=== PATIENT | male | born 1955 | race Caucasian/White ===

== ENCOUNTER 2019-07-10 21:11 | Emergency (ER) | payer BC ==
[~2019-07-10] VITALS: Ht 188 cm; Wt 111.4 kg
[2019-07-10 21:15] VITALS: TEMP 98.9
[2019-07-10] MEDS ORDERED: FLOMAX 0.40.4 MG/CAP PO (23:39)
[2019-07-10] MEDS ORDERED: PROSCAR 5MG5 MG PO (23:39)
[2019-07-10] MEDS ORDERED: LOTREL 2.5 MG-11 CAP PO (23:40)
[2019-07-11] MEDS ORDERED: NORCO 325 MG-51 TAB PO (00:03)
[2019-07-11] MEDS ORDERED: DIAMOX 250MG250 MG PO ×3 (00:03→00:21)
[2019-07-11 00:22] VITALS: BP 133/88; PULSE 85
== END 2019-07-11 00:22 | disposition home or self-care (01) ==
LOC: COL.ER 21:11
DX: S05.12XA Contusion of eyeball and orbital tissues, left eye, initial encounter (principal); H40.059 Ocular hypertension, unspecified eye; W22.8XXA Striking against or struck by other objects, initial encounter